=== PATIENT | male | born 1970 | race African-American/Black ===

== ENCOUNTER 2018-10-28 21:46 | Observation (INO) ==
[2018-10-28] MEDS ORDERED: NITROGLYCERIN 2% OINT 1 INCH/GM PACK TOP STA (22:22)
[2018-10-28] MEDS ORDERED: MORPHINE 4 MG/1 ML VIAL IV STA (22:22)
[2018-10-28] MEDS ORDERED: ASPIRIN 325 MG TABLET PO STA (22:22)
[2018-10-28] MEDS ORDERED: ONDANSETRON 4 MG/2 ML VIAL IV STA (22:22)
[2018-10-28] MEDS ORDERED: FUROSEMIDE 40 MG/4 ML VIAL IV STA (22:28)
[2018-10-28] MEDS ORDERED: METOPROLOL TARTRATE 5 MG/5 ML VIAL IV STA (22:28)
[2018-10-28] MEDS ORDERED: FUROSEMIDE 100 MG/10 ML VIAL ONE (22:54)
[2018-10-29 00:36] LABS: Basophils % 0.9 % (0.0-0.8); Eosinophils # 0.1 10*3/uL (0.0-0.87); Eosinophils % 3.1 % (0.00-10.9); Hematocrit 41.7 VOL% (42.0-52.0); Hemoglobin 13.5 GM/DL (14.0-18.0); Immature Granulocytes % 0.2 %; Immature Granulocytes Absolute 0.01 #; Lymphocytes # 1.3 10*3/uL (1.4-4.0); Lymphocytes % 29.2 % (21.2-54.2); Mean Corpuscular HGB Conc 32.4 GM/DL (32-36); Mean Corpuscular Volume 98.3 FL (87-102); Monocytes % 14.9 % (1.7-12.7); Neutrophils % 51.7 % (38.7-73.9); Platelet Count 188 T/CUMM (130-400); Red Blood Count 4.24 MC/CUMM (3.8-5.5); Red Cell Distribution Width 12.1 % (9.3-17.3); White Blood Count 4.5 T/CUMM (4-12)
[2018-10-29 00:39] LABS: Apearance,Urine CLEAR (Clear); Bacteria,Urine Occasional /HPF (Few); Bilirubin,Urine Negative (Negative); Blood, Urine Negative (Negative); Glucose,Urine (UA) Negative (Negative); Ketones,Urine Negative (Negative); Mucus,Urine Occasional /LPF (Occasional); Nitrite,Urine Negative (Negative); Protein,Urine Negative; RBC,Urine 2 /HPF (0-4); Squamous Epithelial Cell,Urine Occasional /HPF (0-10); Urine Color Yellow (Yellow); Urine Specific Gravity 1.025 (1.001-1.035); WBC,Urine 1 /HPF (0-6)
[2018-10-29 00:41] LABS: PT Patient Result 11.3 SECS
[2018-10-29 01:37] LABS: Albumin 3.6 G/DL (3.4-5.0); Calcium 8.5 MG/DL (8.5-10.1); Osmolality,Calculated 285.3 MOS/KG (273-304); Total Protein 7.7 G/DL (6.4-8.3)
[2018-10-29 04:33] LABS: Barbiturates Screen,Urine Negative (Negative); Benzodiazepines Screen,Urine Negative (Negative); Cannabinoid Screen,Urine Negative (Negative); Opiate Screen,Urine Negative (Negative); Phencyclidine Screen,Urine Negative (Negative)
[2018-10-29] MEDS ORDERED: BISACODYL 5 MG TABLET PO PRN (06:33)
[2018-10-29] MEDS ORDERED: ACETAMINOPHEN 325 MG TABLET PO PRN (06:33)
[2018-10-29] MEDS ORDERED: ONDANSETRON 4 MG/2 ML VIAL IV PRN (06:33)
[2018-10-29] MEDS: ENOXAPARIN 40 MG/0.4 ML SYRINGE SUBCUT SCH (07:10)
[2018-10-29] MEDS ORDERED: HydrOXYzine PAMOATE 50 MG CAPSULE PO PRN (11:02)
[2018-10-29] MEDS ORDERED: LACTULOSE 20 GM/30 ML UDCUP PO PRN (15:10)
[2018-10-29] MEDS: DOCUSATE SODIUM 100 MG CAPSULE PO SCH (20:38)
[2018-10-29] MEDS: CARVEDILOL 6.25 MG TABLET PO SCH (20:38)
[2018-10-29] MEDS: FUROSEMIDE 40 MG TABLET PO SCH (20:38)
[2018-10-29] MEDS ORDERED: FLECAINIDE 50 MG TABLET PO SCH (21:00)
[2018-10-30 04:01] LABS: Basophils % 0.8 % (0.0-0.8); Eosinophils # 0.1 10*3/uL (0.0-0.87); Eosinophils % 3.1 % (0.00-10.9); Hematocrit 41.5 VOL% (42.0-52.0); Hemoglobin 12.9 GM/DL (14.0-18.0); Immature Granulocytes % 0.3 %; Immature Granulocytes Absolute 0.01 #; Lymphocytes # 0.9 10*3/uL (1.4-4.0); Lymphocytes % 26.6 % (21.2-54.2); Mean Corpuscular HGB Conc 31.1 GM/DL (32-36); Mean Corpuscular Volume 101.2 FL (87-102); Mean Platelet Volume 11.4 FL (9.6-12.0); Neutrophils % 52.2 % (38.7-73.9); Platelet Count 153 T/CUMM (130-400); Red Cell Distribution Width 11.9 % (9.3-17.3); White Blood Count 3.5 T/CUMM (4-12)
[2018-10-30 04:30] LABS: Albumin 3.4 G/DL (3.4-5.0); Calcium 8.9 MG/DL (8.5-10.1); Total Protein 7.1 G/DL (6.4-8.3)
[2018-10-30 04:32] LABS: Anisocytosis 1+; Eosinophils 3 % (0-10); Lymphocytes 26 % (20-55); Macrocytosis 1+; Platelet Estimate Adequate; Segmented Neutrophils 55 % (50-85); Total Cells Counted 100
[2018-10-30] MEDS: ENOXAPARIN 40 MG/0.4 ML SYRINGE SUBCUT SCH (06:21)
[2018-10-30] MEDS: SOTALOL 80 MG TABLET PO SCH ×2 (09:11→21:46)
[2018-10-30] MEDS: MAGNESIUM OXIDE 400 MG TABLET PO SCH (09:11)
[2018-10-30] MEDS: POTASSIUM CHLORIDE 10 MEQ TABLET PO SCH (09:11)
[2018-10-30] MEDS: FUROSEMIDE 40 MG TABLET PO SCH ×2 (09:11→21:46)
[2018-10-30] MEDS: ASPIRIN EC 81 MG TABLET PO SCH (09:11)
[2018-10-30] MEDS: CARVEDILOL 6.25 MG TABLET PO SCH ×2 (09:12→16:33)
[2018-10-30] MEDS: LACTULOSE 20 GM/30 ML UDCUP PO SCH ×2 (10:58→21:46)
[2018-10-30] MEDS: POLYETHYLENE GLYCOL POWDER 17 GM PACK PO SCH (15:03)
[2018-10-30] MEDS: DOCUSATE SODIUM 100 MG CAPSULE PO SCH (21:46)
[2018-10-31 06:23] LABS: Calcium 8.5 MG/DL (8.5-10.1); Osmolality,Calculated 280.4 MOS/KG (273-304)
[2018-10-31] MEDS: ENOXAPARIN 40 MG/0.4 ML SYRINGE SUBCUT SCH (06:23)
[2018-10-31] MEDS: POLYETHYLENE GLYCOL POWDER 17 GM PACK PO SCH (08:49)
[2018-10-31] MEDS: LACTULOSE 20 GM/30 ML UDCUP PO SCH ×2 (08:49→20:56)
[2018-10-31] MEDS: FUROSEMIDE 40 MG TABLET PO SCH ×2 (08:49→20:56)
[2018-10-31] MEDS: ASPIRIN EC 81 MG TABLET PO SCH (08:50)
[2018-10-31] MEDS: SOTALOL 80 MG TABLET PO SCH ×2 (08:50→20:56)
[2018-10-31] MEDS: CARVEDILOL 6.25 MG TABLET PO SCH ×2 (08:50→17:32)
[2018-10-31] MEDS: MAGNESIUM OXIDE 400 MG TABLET PO SCH (08:50)
[2018-10-31] MEDS: POTASSIUM CHLORIDE 10 MEQ TABLET PO SCH (08:50)
[2018-10-31] MEDS: DOCUSATE SODIUM 100 MG CAPSULE PO SCH (20:56)
[2018-11-01] MEDS: ENOXAPARIN 40 MG/0.4 ML SYRINGE SUBCUT SCH (06:25)
[2018-11-01 08:44] VITALS: BP 105/65
[2018-11-01] MEDS: ASPIRIN EC 81 MG TABLET PO SCH (08:50)
[2018-11-01] MEDS: MAGNESIUM OXIDE 400 MG TABLET PO SCH (08:50)
[2018-11-01] MEDS: POTASSIUM CHLORIDE 10 MEQ TABLET PO SCH (08:51)
[2018-11-01] MEDS: CARVEDILOL 6.25 MG TABLET PO SCH (08:51)
[2018-11-01] MEDS: FUROSEMIDE 40 MG TABLET PO SCH (08:51)
[2018-11-01] MEDS: SOTALOL 80 MG TABLET PO SCH (08:52)
[2018-11-01] MEDS: POLYETHYLENE GLYCOL POWDER 17 GM PACK PO SCH (08:54)
[2018-11-01] MEDS: LACTULOSE 20 GM/30 ML UDCUP PO SCH (08:54)
[2018-11-01] MEDS ORDERED: CARVEDILOL 3.125 MG TABLET PO SCH (09:09)
== END 2018-11-01 10:39 | disposition home or self-care (01) ==
LOC: N.ED 21:46 → N.EDINP 21:46 → SUATTDRO 10-29 03:53 → N.4E 10-29 05:18 → N.TELES 10-29 19:37
PROVIDERS: ADMIT Internal Medicine; ATTEND Internal Medicine